=== PATIENT | male | born 1965 | race Caucasian/White ===

== ENCOUNTER 2019-01-22 05:45 | Emergency (ER) | payer MEDICAID ==
[~2019-01-22] VITALS: Ht 175.3 cm; Wt 166.9 kg
[~2019-01-22 05:45] MED LIST: AML5T PO; ASP81EC PO; ATOR1TAB PO; CLIN150C PO; GLIP5TAB12 PO
[2019-01-22 06:48] LABS: Urine Bacteria NONE SEEN /hpf (None Seen); Urine Blood Negative /uL (Negative); Urine Specific Gravity 1.004 (1.001-1.035); Urine WBC <1 /hpf (0 - 3)
[2019-01-22 07:11] LABS: Basophils # (auto) 0.1 uL; Basophils % (auto) 0.6 % (0.0-2.0); Eosinophils # (auto) 0.7 uL; Eosinophils % (auto) 4.6 % (0.0-7.0); Hematocrit 42.9 % (41.0-53.0); Hemoglobin 14.3 g/dL (13.5-17.5); Lymphocytes # (auto) 2.7 uL; Lymphocytes % (auto) 18.9 % (10.0-50.0); Mean Corpuscular Hemoglobin 30.3 pg (28.0-32.0); Mean Corpuscular Hgb Conc. 33.4 g/dL (32.0-36.0); Mean Corpuscular Volume 90.6 fL (80.0-100.0); Monocytes # (auto) 0.9 uL; Monocytes % (auto) 6.2 % (0.0-12.0); Neutrophils % (auto) 69.7 % (37.0-80.0); Platelet Count (auto) 301 10^3/uL (140-450); Red Blood Cells 4.73 10^6/uL (4.5-5.90); Red Cell Distribution Width 14.1 % (11.8-14.3); White Blood Cell 14.3 10^3/uL (4.4-10.8)
[2019-01-22 07:25] LABS: Alanine Aminotransferase 33 U/L (16-61); Albumin 3.4 g/dL (3.4-5.0); Amylase 39 U/L (25-115); Anion Gap 8 (5-15); Aspartate Aminotransferase 15 U/L (15-37); BUN/Creatinine Ratio 15.5; Blood Urea Nitrogen 18 mg/dL (7-18); Calcium 9.1 mg/dL (8.5-10.1); Carbon Dioxide 26 mmol/L (21-32); Chloride 100 mmol/L (98-107); GFR African American 84 mL/min; GFR Non-African American 70 mL/min; Glucose 246 mg/dL (74-106); Lipase 69 U/L (73-393); Potassium 4.2 mmol/L (3.5-5.1); Sodium 134 mmol/L (136-145)
[2019-01-22 07:31] LABS: Alkaline Phosphatase 98 U/L (45-117); Bilirubin, Total 0.4 mg/dL (0.2-1.0); Total Protein 7.6 g/dL (6.4-8.2)
[2019-01-22] MEDS ORDERED: SODIUM CHLORIDE 0.9% 1,000 ML IV ONE (08:04)
[2019-01-22] MEDS ORDERED: PROMETHAZINE HCL 25 MG/ML 1ML IV PRN (08:15)
[2019-01-22] MEDS ORDERED: HYDROmorphone HCL 2 MG/ML VL IV ONE (08:15)
[2019-01-22] MEDS ORDERED: LABETALOL HCL 5 MG/ML ML 20ML VIAL IV ONE (08:45)
[2019-01-22 14:00] VITALS: BP 118/86
== END 2019-01-22 14:23 | disposition home or self-care (01) ==
LOC: ER 05:45
DX: R10.11 Right upper quadrant pain (principal); R10.31 Right lower quadrant pain; M54.9 Dorsalgia, unspecified; E11.65 Type 2 diabetes mellitus with hyperglycemia; N28.89 Other specified disorders of kidney and ureter; E66.01 Morbid (severe) obesity due to excess calories; I10 Essential (primary) hypertension; E78.5 Hyperlipidemia, unspecified; I25.2 Old myocardial infarction; F12.90 Cannabis use, unspecified, uncomplicated; Z79.84 Long term (current) use of oral hypoglycemic drugs; Z79.82 Long term (current) use of aspirin; Z79.899 Other long term (current) drug therapy; Z68.43 Body mass index [BMI] 50.0-59.9, adult
CPT/HCPCS: 36415; 74176; 80053; 81001; 82150; 82962; 83690; 83735; 84443; 84484; 85025; 93005; 96361; 96374; 96375; 99284; J1170; J2550; J7030

== ENCOUNTER → 2019-05-29 | Outpatient (CLI) | payer MEDICAID | END | disposition home or self-care (01) | LOC: XYW 10:57 | PROVIDERS: ATTEND Internal Medicine | DX: Z01.810 Encounter for preprocedural cardiovascular examination (principal); I51.7 Cardiomegaly | CPT/HCPCS: 93306 ==

== ENCOUNTER → 2019-05-30 | Outpatient (CLI) | payer MEDICAID ==
[~2019-05-30] VITALS: Ht 175.3 cm; Wt 165.6 kg
[~2019-05-30] MED LIST changes: +ADENOSINE IV ONE; +GIVE UN DILUTED IV ONE
== END | disposition home or self-care (01) ==
LOC: XY 07:09
PROVIDERS: ATTEND Internal Medicine
DX: Z01.810 Encounter for preprocedural cardiovascular examination (principal); I10 Essential (primary) hypertension; E11.9 Type 2 diabetes mellitus without complications
CPT/HCPCS: 78452; 93017; A9500; J0153

== ENCOUNTER 2019-06-30 05:17 | Emergency (ER) | payer MEDICAID ==
[~2019-06-30] VITALS: Ht 175.3 cm; Wt 166.9 kg
[~2019-06-30 05:17] MED LIST changes: -ADENOSINE IV ONE; -GIVE UN DILUTED IV ONE
[2019-06-30 06:13] VITALS: BP 124/79
[2019-06-30 06:39] LABS: Urine WBC None Seen /hpf (0 - 3)
[2019-06-30 06:54] LABS: Urine Bacteria NONE SEEN /hpf (None Seen); Urine Blood Negative /uL (Negative); Urine Specific Gravity 1.007 (1.001-1.035)
[2019-06-30 07:08] LABS: Basophils # (auto) 0.1 uL; Eosinophils # (auto) 0.3 uL; Eosinophils % (auto) 2.4 % (0.0-7.0); Hematocrit 41.7 % (41.0-53.0); Hemoglobin 13.9 g/dL (13.5-17.5); Lymphocytes # (auto) 2.3 uL; Lymphocytes % (auto) 18.7 % (10.0-50.0); Mean Corpuscular Hgb Conc. 33.2 g/dL (32.0-36.0); Mean Corpuscular Volume 90.2 fL (80.0-100.0); Monocytes # (auto) 0.8 uL; Monocytes % (auto) 6.5 % (0.0-12.0); Neutrophils # (auto) 8.8 uL; Neutrophils % (auto) 71.4 % (37.0-80.0); Platelet Count (auto) 292 10^3/uL (140-450); Red Blood Cells 4.63 10^6/uL (4.5-5.90); Red Cell Distribution Width 14.8 % (11.8-14.3); White Blood Cell 12.3 10^3/uL (4.4-10.8)
[2019-06-30 07:29] LABS: INR 0.93 (0.9-1.15); Partial Thromboplastin Time 26.8 sec (23.64-32.05)
[2019-06-30 07:36] LABS: Blood Urea Nitrogen 17 mg/dL (7-18); Calcium 8.7 mg/dL (8.5-10.1); Chloride 104 mmol/L (98-107); Potassium 4.5 mmol/L (3.5-5.1); Sodium 136 mmol/L (136-145)
[2019-06-30 07:45] LABS: Alanine Aminotransferase 35 U/L (16-61); Albumin 3.2 g/dL (3.4-5.0); Alkaline Phosphatase 95 U/L (45-117); Amylase 35 U/L (25-115); Anion Gap 5 (5-15); Aspartate Aminotransferase 16 U/L (15-37); Bilirubin, Total 0.2 mg/dL (0.2-1.0); Carbon Dioxide 27 mmol/L (21-32); GFR African American 80 mL/min; GFR Non-African American 66 mL/min; Glucose 188 mg/dL (74-106); Lipase 69 U/L (73-393); Magnesium 1.9 mg/dL (1.6-2.6); Total Protein 7.5 g/dL (6.4-8.2)
[2019-06-30] MEDS ORDERED: HYDROcodone-ACET 10/325MG TAB PO ONE (09:15)
== END 2019-06-30 12:28 | disposition home or self-care (01) ==
LOC: ER 05:17
DX: N28.89 Other specified disorders of kidney and ureter (principal); E86.0 Dehydration; E11.22 Type 2 diabetes mellitus with diabetic chronic kidney disease; I12.9 Hypertensive chronic kidney disease with stage 1 through stage 4 chronic kidney disease, or unspecified chronic kidney disease; N18.9 Chronic kidney disease, unspecified; E78.5 Hyperlipidemia, unspecified; I25.2 Old myocardial infarction; Z87.891 Personal history of nicotine dependence
CPT/HCPCS: 36415; 71046; 74176; 80053; 81001; 82150; 83690; 83735; 84484; 85025; 85610; 85730; 93005

== ENCOUNTER 2019-07-19 07:37 | Emergency (ER) | payer MEDICAID ==
[~2019-07-19] VITALS: Ht 175.3 cm; Wt 163.3 kg
[2019-07-19 08:52] LABS: Basophils # (auto) 0.2 10 ^3/uL (0-0.2); Basophils % (auto) 1.3 % (0.0-2.0); Eosinophils # (auto) 0.4 10 ^3/uL (0-0.8); Eosinophils % (auto) 2.7 % (0.0-7.0); Hematocrit 37.1 % (41.0-53.0); Hemoglobin 12.4 g/dL (13.5-17.5); Lymphocytes # (auto) 1.9 10 ^3/uL (0.4-5.4); Mean Corpuscular Hemoglobin 30.2 pg (28.0-32.0); Mean Corpuscular Hgb Conc. 33.5 g/dL (32.0-36.0); Mean Corpuscular Volume 90.1 fL (80.0-100.0); Monocytes # (auto) 1.1 10 ^3/uL (0-1.3); Monocytes % (auto) 7.6 % (0.0-12.0); Neutrophils # (auto) 10.8 10 ^3/uL (1.6-8.6); Neutrophils % (auto) 75.4 % (37.0-80.0); Nucleated Red Blood Cells % 0.1 %; Platelet Count (auto) 314 10^3/uL (140-450); Red Blood Cells 4.12 10^6/uL (4.5-5.90); Red Cell Distribution Width 14.3 % (11.8-14.3); White Blood Cell 14.3 10^3/uL (4.4-10.8)
[2019-07-19 09:06] LABS: Albumin 2.8 g/dL (3.4-5.0); Potassium 4.6 mmol/L (3.5-5.1)
[2019-07-19 09:08] LABS: BUN/Creatinine Ratio 13.3
[2019-07-19 09:10] LABS: Bilirubin, Total 0.5 mg/dL (0.2-1.0); Total Protein 7.5 g/dL (6.4-8.2)
[2019-07-19 10:13] VITALS: BP 134/90
[2019-07-19 10:26] LABS: Urine Bacteria FEW /hpf (None Seen); Urine Blood TRACE /uL (Negative); Urine Hyaline Cast FEW /lpf (0 - 2); Urine Specific Gravity 1.012 (1.001-1.035); Urine WBC 2 /hpf (0 - 3)
== END 2019-07-19 10:19 | disposition home or self-care (01) ==
LOC: ER 07:37
DX: R10.84 Generalized abdominal pain (principal); D72.829 Elevated white blood cell count, unspecified; M62.838 Other muscle spasm; I11.0 Hypertensive heart disease with heart failure; I50.9 Heart failure, unspecified; E11.9 Type 2 diabetes mellitus without complications; E78.5 Hyperlipidemia, unspecified; I25.2 Old myocardial infarction; F12.10 Cannabis abuse, uncomplicated; Z87.891 Personal history of nicotine dependence
CPT/HCPCS: 36415; 74018; 80053; 81001; 82150; 83690; 85025; 93005

== ENCOUNTER 2020-02-04 20:11 | Emergency (ER) | payer MEDICAID ==
[~2020-02-04] VITALS: Ht 175.3 cm; Wt 164.2 kg
[~2020-02-04 20:11] MED LIST changes: -ASP81EC PO; +ASPI-394 PO
[2020-02-04 21:38] LABS: Urine Bacteria NONE SEEN /hpf (None Seen); Urine Blood TRACE /uL (Negative); Urine Hyaline Cast FEW /lpf (0 - 2); Urine Specific Gravity 1.013 (1.001-1.035); Urine WBC <1 /hpf (0 - 3)
[2020-02-04 21:44] LABS: Basophils # (auto) 0.1 10 ^3/uL (0-0.2); Basophils % (auto) 0.9 % (0.0-2.0); Eosinophils # (auto) 0.3 10 ^3/uL (0-0.8); Eosinophils % (auto) 2.2 % (0.0-7.0); Hematocrit 38.9 % (41.0-53.0); Hemoglobin 13.1 g/dL (13.5-17.5); Lymphocytes # (auto) 2.9 10 ^3/uL (0.4-5.4); Lymphocytes % (auto) 20.2 % (10.0-50.0); Mean Corpuscular Hemoglobin 29.9 pg (28.0-32.0); Mean Corpuscular Hgb Conc. 33.5 g/dL (32.0-36.0); Mean Corpuscular Volume 89.3 fL (80.0-100.0); Monocytes % (auto) 7.4 % (0.0-12.0); Neutrophils # (auto) 9.8 10 ^3/uL (1.6-8.6); Neutrophils % (auto) 69.3 % (37.0-80.0); Nucleated Red Blood Cells % 0.1 %; Platelet Count (auto) 330 10^3/uL (140-450); Red Blood Cells 4.36 10^6/uL (4.5-5.90); Red Cell Distribution Width 14.3 % (11.8-14.3); White Blood Cell 14.2 10^3/uL (4.4-10.8)
[2020-02-04 21:53] LABS: Alanine Aminotransferase 32 U/L (16-61); Albumin 3.4 g/dL (3.4-5.0); Anion Gap 8 (5-15); Aspartate Aminotransferase 15 U/L (15-37); BUN/Creatinine Ratio 15.2; Blood Urea Nitrogen 35 mg/dL (7-18); Carbon Dioxide 25 mmol/L (21-32); Chloride 104 mmol/L (98-107); GFR African American 38 mL/min; GFR Non-African American 31 mL/min; Glucose 128 mg/dL (74-106); Potassium 4.3 mmol/L (3.5-5.1); Sodium 137 mmol/L (136-145)
[2020-02-04 21:58] LABS: Alkaline Phosphatase 102 U/L (45-117); Bilirubin, Total 0.3 mg/dL (0.2-1.0); Total Protein 7.5 g/dL (6.4-8.2)
[2020-02-04] MEDS ORDERED: ONDANSETRON HCL 4 MG/2 ML VIAL IV ONE (23:45)
[2020-02-04] MEDS ORDERED: SODIUM CHLORIDE 0.9% 1,000 ML IV ONE (23:45)
[2020-02-04] MEDS ORDERED: MORPHINE SULFATE 4 MG/ML SYR/VIAL IV ONE (23:45)
[2020-02-05 00:50] LABS: Amylase 48 U/L (25-115); Lipase 80 U/L (73-393)
[2020-02-05 03:58] VITALS: BP 127/69
== END 2020-02-05 04:13 | disposition home or self-care (01) ==
LOC: ER 20:14
DX: N17.9 Acute kidney failure, unspecified (principal); D72.829 Elevated white blood cell count, unspecified; E11.22 Type 2 diabetes mellitus with diabetic chronic kidney disease; I12.9 Hypertensive chronic kidney disease with stage 1 through stage 4 chronic kidney disease, or unspecified chronic kidney disease; N18.9 Chronic kidney disease, unspecified; E78.5 Hyperlipidemia, unspecified
CPT/HCPCS: 36415; 71045; 74176; 80053; 81001; 82150; 83690; 84484; 85025; 93005; 96361; 96374; 96375; 99285; J2270; J2405; J7030

== ENCOUNTER 2020-02-06 11:22 | Emergency (ER) | payer MEDICAID ==
[~2020-02-06] VITALS: Ht 175.3 cm; Wt 164.2 kg
[2020-02-06 12:32] LABS: Urine WBC None Seen /hpf (0 - 3)
[2020-02-06 12:45] LABS: Urine Bacteria FEW /hpf (None Seen); Urine Blood 1+ /uL (Negative); Urine Specific Gravity 1.012 (1.001-1.035)
[2020-02-06 13:12] LABS: Basophils # (auto) 0.2 10 ^3/uL (0-0.2); Basophils % (auto) 1.2 % (0.0-2.0); Eosinophils # (auto) 0.2 10 ^3/uL (0-0.8); Eosinophils % (auto) 1.5 % (0.0-7.0); Hematocrit 38.8 % (41.0-53.0); Hemoglobin 12.9 g/dL (13.5-17.5); Lymphocytes # (auto) 2.1 10 ^3/uL (0.4-5.4); Lymphocytes % (auto) 14.3 % (10.0-50.0); Mean Corpuscular Hemoglobin 29.9 pg (28.0-32.0); Mean Corpuscular Hgb Conc. 33.3 g/dL (32.0-36.0); Mean Corpuscular Volume 89.7 fL (80.0-100.0); Monocytes # (auto) 0.9 10 ^3/uL (0-1.3); Monocytes % (auto) 6.1 % (0.0-12.0); Neutrophils # (auto) 11.1 10 ^3/uL (1.6-8.6); Neutrophils % (auto) 76.9 % (37.0-80.0); Platelet Count (auto) 317 10^3/uL (140-450); Red Blood Cells 4.32 10^6/uL (4.5-5.90); Red Cell Distribution Width 13.8 % (11.8-14.3); White Blood Cell 14.4 10^3/uL (4.4-10.8)
[2020-02-06 13:32] LABS: Albumin 3.6 g/dL (3.4-5.0); Calcium 9.1 mg/dL (8.5-10.1)
[2020-02-06 13:40] LABS: BUN/Creatinine Ratio 13.2; Bilirubin, Total 0.4 mg/dL (0.2-1.0); Total Protein 7.5 g/dL (6.4-8.2)
[2020-02-06 14:08] VITALS: BP 158/58
== END 2020-02-06 14:21 | disposition home or self-care (01) ==
LOC: ER 11:22
DX: R10.11 Right upper quadrant pain (principal); E11.22 Type 2 diabetes mellitus with diabetic chronic kidney disease; I12.9 Hypertensive chronic kidney disease with stage 1 through stage 4 chronic kidney disease, or unspecified chronic kidney disease; N18.9 Chronic kidney disease, unspecified; E78.5 Hyperlipidemia, unspecified; Z87.891 Personal history of nicotine dependence
CPT/HCPCS: 36415; 74176; 80053; 81001; 85025; 93005

== ENCOUNTER 2020-05-15 17:21 | Inpatient (IN) | payer MEDICAID ==
[~2020-05-15] VITALS: Ht 175.3 cm; Wt 166.1 kg
[~2020-05-15 17:21] MED LIST changes: +ASPI-543 PO; +BACL10TA PO; +CAR125T PO; +INS7030I SC
[2020-05-15] MEDS ORDERED: ACETAMINOPHEN 325 MG TAB PO ONE (18:14)
[2020-05-15] MEDS ORDERED: ONDANSETRON HCL 4 MG/2 ML VIAL ONE (18:14)
[2020-05-15] MEDS ORDERED: DexAMETHasone SOD PHOS 10MG/1ML VIAL INJ IV ONE (19:15)
[2020-05-15] MEDS ORDERED: AZITHROMYCIN 500MG/ 250ML 250 ML IV ONE (19:15)
[2020-05-15 22:15] LABS: Basophils # (auto) 0 10 ^3/uL (0-0.2); Basophils % (auto) 0.3 % (0.0-2.0); Eosinophils # (auto) 0 10 ^3/uL (0-0.8); Hematocrit 34.8 % (41.0-53.0); Hemoglobin 11.9 g/dL (13.5-17.5); Lymphocytes # (auto) 0.7 10 ^3/uL (0.4-5.4); Lymphocytes % (auto) 7.5 % (10.0-50.0); Mean Corpuscular Hgb Conc. 34.2 g/dL (32.0-36.0); Mean Corpuscular Volume 87.8 fL (80.0-100.0); Monocytes # (auto) 0.6 10 ^3/uL (0-1.3); Monocytes % (auto) 5.9 % (0.0-12.0); Neutrophils # (auto) 8.1 10 ^3/uL (1.6-8.6); Neutrophils % (auto) 86.3 % (37.0-80.0); Platelet Count (auto) 237 10^3/uL (140-450); Red Blood Cells 3.97 10^6/uL (4.5-5.90); Red Cell Distribution Width 13.4 % (11.8-14.3); White Blood Cell 9.4 10^3/uL (4.4-10.8)
[2020-05-15 22:23] LABS: Albumin 2.8 g/dL (3.4-5.0); Calcium 7.9 mg/dL (8.5-10.1); Magnesium 1.7 mg/dL (1.6-2.6); Potassium 5.1 mmol/L (3.5-5.1)
[2020-05-15 22:31] LABS: BUN/Creatinine Ratio 16.4; Bilirubin, Total 0.3 mg/dL (0.2-1.0); Total Protein 7.1 g/dL (6.4-8.2)
[2020-05-16] MEDS ORDERED: DEXTROSE (50%) 50ML SYRG IV PRN (01:30)
[2020-05-16] MEDS ORDERED: ACETAMINOPHEN 500 MG TAB PO PRN (01:30)
[2020-05-16] MEDS ORDERED: DOCUSATE SOD 100 MG CAP PO PRN (01:30)
[2020-05-16] MEDS ORDERED: NITROGLYCERIN 0.4 MG SL TAB SL PRN (01:30)
[2020-05-16] MEDS ORDERED: HYDROcodone-ACET 5/325MG TAB PO PRN (01:30)
[2020-05-16] MEDS ORDERED: MORPHINE SULF INJ 2 MG/ML SYRINGE 1ML IV PRN (01:30)
[2020-05-16] MEDS ORDERED: SODIUM CHL 3% 500 ML IV ONE (01:30)
[2020-05-16 03:26] LABS: Partial Thromboplastin Time 26.8 sec (23.0-31.2)
[2020-05-16] MEDS: SODIUM CHLOR 0.9% PF (SALINE LOCK) 10ML VIAL/SYR IV SCH ×3 (06:57→21:56)
[2020-05-16] MEDS ORDERED: INSULIN LANTUS (GLARGINE) 1 /0.01ml (100units/ml) SC SCH (07:00)
[2020-05-16] MEDS: ACCU-CHEK COMFORT CURVE STRIP VI SCH ×4 (07:07→22:13)
[2020-05-16] MEDS: InsuLIN REG 1unit/0.01ml Soln (100units/ml) SC SCH ×5 (07:09→22:13)
[2020-05-16] MEDS: CHOLECALCIFEROL (VITD3) 2,000 UNIT CAP PO SCH (09:00)
[2020-05-16] MEDS: ZINC SULFATE 220mg CAP or TAB PO SCH (09:00)
[2020-05-16] MEDS: ASCORBIC ACID 1,000 MG TAB PO SCH (09:00)
[2020-05-16] MEDS: MULTIPLE VITAMIN TAB PO SCH (09:00)
[2020-05-16] MEDS: FAMOTIDINE (10MG/ML) 2ML VL IV SCH (09:06)
[2020-05-16] MEDS: HEPARIN SODIUM (PORCINE) 5000 UNITS/ML 1ML VIAL SC SCH ×2 (09:06→22:12)
[2020-05-16] MEDS: DexAMETHasone SOD PHOS 10MG/1ML VIAL INJ IV SCH (09:06)
[2020-05-16] MEDS: BUDESONIDE (INHALATION) 180 MCG IH IN SCH ×4 (09:07→18:58)
[2020-05-16] MEDS: DOXYCYCLINE 100MG/250ML 250 ML IV SCH ×2 (09:07→21:57)
[2020-05-16] MEDS ORDERED: ENOXAPARIN SOD 40 MG/0.4 ML SYRINGE SC SCH (10:00)
[2020-05-16] MEDS: ALBUTEROL SULF HFA 90MCG INH 200DOSE IN PRN ×2 (11:08→19:38)
[2020-05-16 12:00] LABS: Basophils # (auto) 0 10 ^3/uL (0-0.2); Basophils % (auto) 0.3 % (0.0-2.0); Eosinophils # (auto) 0 10 ^3/uL (0-0.8); Hematocrit 34.8 % (41.0-53.0); Lymphocytes # (auto) 0.6 10 ^3/uL (0.4-5.4); Lymphocytes % (auto) 10.2 % (10.0-50.0); Mean Corpuscular Hemoglobin 30.3 pg (28.0-32.0); Mean Corpuscular Hgb Conc. 34.4 g/dL (32.0-36.0); Mean Corpuscular Volume 87.9 fL (80.0-100.0); Monocytes # (auto) 0.4 10 ^3/uL (0-1.3); Monocytes % (auto) 6.5 % (0.0-12.0); Neutrophils # (auto) 4.6 10 ^3/uL (1.6-8.6); Platelet Count (auto) 252 10^3/uL (140-450); Red Blood Cells 3.96 10^6/uL (4.5-5.90); Red Cell Distribution Width 13.2 % (11.8-14.3); White Blood Cell 5.5 10^3/uL (4.4-10.8)
[2020-05-16 12:10] LABS: Total Protein 7.2 g/dL (6.4-8.2)
[2020-05-16 16:50] LABS: BUN/Creatinine Ratio 17.6
[2020-05-16 16:51] LABS: Bilirubin, Total 0.5 mg/dL (0.2-1.0); Calcium 8.4 mg/dL (8.5-10.1)
[2020-05-16] MEDS: INSULIN 70/30 1unit/0.01ml Susp (100units/ml) SC SCH ×2 (18:43→22:12)
[2020-05-16] MEDS: glipiZIDE 5 MG TAB PO SCH (18:43)
[2020-05-17] VITALS: BP 141/72
[2020-05-17] MEDS: FAMOTIDINE (10MG/ML) 2ML VL IV SCH ×3 (00:43→21:51)
[2020-05-17 01:44] VITALS: BP 141/72
[2020-05-17] MEDS: SODIUM CHLOR 0.9% PF (SALINE LOCK) 10ML VIAL/SYR IV SCH ×3 (06:34→21:51)
[2020-05-17] MEDS: glipiZIDE 5 MG TAB PO SCH ×2 (06:35→17:29)
[2020-05-17] MEDS: InsuLIN REG 1unit/0.01ml Soln (100units/ml) SC SCH ×4 (06:35→21:57)
[2020-05-17] MEDS: ACCU-CHEK COMFORT CURVE STRIP VI SCH ×4 (06:35→21:52)
[2020-05-17] MEDS: INSULIN 70/30 1unit/0.01ml Susp (100units/ml) SC SCH ×3 (06:36→21:57)
[2020-05-17 07:59] LABS: Basophils # (auto) 0.1 10 ^3/uL (0-0.2); Basophils % (auto) 0.5 % (0.0-2.0); Eosinophils # (auto) 0 10 ^3/uL (0-0.8); Hematocrit 36.7 % (41.0-53.0); Hemoglobin 12.1 g/dL (13.5-17.5); Lymphocytes % (auto) 8.5 % (10.0-50.0); Mean Corpuscular Hemoglobin 29.1 pg (28.0-32.0); Mean Corpuscular Volume 88.1 fL (80.0-100.0); Monocytes % (auto) 8.6 % (0.0-12.0); Neutrophils # (auto) 9.6 10 ^3/uL (1.6-8.6); Neutrophils % (auto) 82.4 % (37.0-80.0); Platelet Count (auto) 309 10^3/uL (140-450); Red Blood Cells 4.17 10^6/uL (4.5-5.90); Red Cell Distribution Width 13.4 % (11.8-14.3); White Blood Cell 11.7 10^3/uL (4.4-10.8)
[2020-05-17 08:00] VITALS: BP 154/74
[2020-05-17 08:38] LABS: Albumin 2.9 g/dL (3.4-5.0); Calcium 8.7 mg/dL (8.5-10.1); Potassium 5.1 mmol/L (3.5-5.1)
[2020-05-17 08:41] LABS: BUN/Creatinine Ratio 19.2; Bilirubin, Total 0.3 mg/dL (0.2-1.0); Total Protein 7.3 g/dL (6.4-8.2)
[2020-05-17] MEDS: DexAMETHasone SOD PHOS 10MG/1ML VIAL INJ IV SCH (09:28)
[2020-05-17] MEDS: CHOLECALCIFEROL (VITD3) 2,000 UNIT CAP PO SCH (09:29)
[2020-05-17] MEDS: ZINC SULFATE 220mg CAP or TAB PO SCH (09:29)
[2020-05-17] MEDS: ASCORBIC ACID 1,000 MG TAB PO SCH (09:29)
[2020-05-17] MEDS: MULTIPLE VITAMIN TAB PO SCH (09:29)
[2020-05-17] MEDS: DOXYCYCLINE 100MG/250ML 250 ML IV SCH ×2 (09:29→21:51)
[2020-05-17] MEDS: ONDANSETRON HCL 4 MG/2 ML VIAL IV PRN (09:47)
[2020-05-17] MEDS: HEPARIN SODIUM (PORCINE) 5000 UNITS/ML 1ML VIAL SC SCH ×2 (09:48→21:53)
[2020-05-17] MEDS: BUDESONIDE (INHALATION) 180 MCG IH IN SCH ×2 (10:00→21:25)
[2020-05-17 16:00] VITALS: BP 154/74
[2020-05-17 18:20] VITALS: BP 159/86
[2020-05-17] MEDS: ALBUTEROL SULF HFA 90MCG INH 200DOSE IN PRN (21:25)
[2020-05-17 23:40] VITALS: BP 134/60
[2020-05-18] MEDS: SODIUM CHLOR 0.9% PF (SALINE LOCK) 10ML VIAL/SYR IV SCH ×2 (06:03→14:00)
[2020-05-18] MEDS: INSULIN 70/30 1unit/0.01ml Susp (100units/ml) SC SCH ×2 (06:43→14:00)
[2020-05-18] MEDS: InsuLIN REG 1unit/0.01ml Soln (100units/ml) SC SCH ×3 (06:44→18:07)
[2020-05-18] MEDS: glipiZIDE 5 MG TAB PO SCH ×2 (06:44→18:06)
[2020-05-18] MEDS: ACCU-CHEK COMFORT CURVE STRIP VI SCH ×3 (06:44→18:06)
[2020-05-18] MEDS: ONDANSETRON HCL 4 MG/2 ML VIAL IV PRN ×2 (06:53→10:14)
[2020-05-18 07:57] LABS: Basophils # (auto) 0 10 ^3/uL (0-0.2); Basophils % (auto) 0.2 % (0.0-2.0); Eosinophils # (auto) 0 10 ^3/uL (0-0.8); Hematocrit 35.1 % (41.0-53.0); Hemoglobin 11.7 g/dL (13.5-17.5); Lymphocytes # (auto) 0.9 10 ^3/uL (0.4-5.4); Lymphocytes % (auto) 8.4 % (10.0-50.0); Mean Corpuscular Hemoglobin 29.4 pg (28.0-32.0); Mean Corpuscular Hgb Conc. 33.5 g/dL (32.0-36.0); Mean Corpuscular Volume 87.8 fL (80.0-100.0); Monocytes # (auto) 0.8 10 ^3/uL (0-1.3); Monocytes % (auto) 7.6 % (0.0-12.0); Neutrophils # (auto) 9.2 10 ^3/uL (1.6-8.6); Neutrophils % (auto) 83.8 % (37.0-80.0); Platelet Count (auto) 320 10^3/uL (140-450); Red Cell Distribution Width 13.3 % (11.8-14.3)
[2020-05-18 08:20] LABS: Potassium 4.7 mmol/L (3.5-5.1)
[2020-05-18 08:44] LABS: Albumin 2.6 g/dL (3.4-5.0); BUN/Creatinine Ratio 19.5; Bilirubin, Total 0.3 mg/dL (0.2-1.0); CRP High Sensitivity 2.57 mg/dL (< 0.3); Calcium 8.3 mg/dL (8.5-10.1)
[2020-05-18] MEDS: BUDESONIDE (INHALATION) 180 MCG IH IN SCH ×2 (09:17→19:59)
[2020-05-18] MEDS: ALBUTEROL SULF HFA 90MCG INH 200DOSE IN PRN ×2 (09:17→19:59)
[2020-05-18] MEDS: FAMOTIDINE (10MG/ML) 2ML VL IV SCH (10:00)
[2020-05-18] MEDS: DOXYCYCLINE 100MG/250ML 250 ML IV SCH (10:13)
[2020-05-18] MEDS: ASCORBIC ACID 1,000 MG TAB PO SCH (10:13)
[2020-05-18] MEDS: ZINC SULFATE 220mg CAP or TAB PO SCH (10:13)
[2020-05-18] MEDS: MULTIPLE VITAMIN TAB PO SCH (10:13)
[2020-05-18] MEDS: CHOLECALCIFEROL (VITD3) 2,000 UNIT CAP PO SCH (10:13)
[2020-05-18] MEDS: DexAMETHasone SOD PHOS 10MG/1ML VIAL INJ IV SCH (10:14)
[2020-05-18] MEDS: HEPARIN SODIUM (PORCINE) 5000 UNITS/ML 1ML VIAL SC SCH (10:22)
[2020-05-18 16:00] VITALS: BP 144/76
== END 2020-05-18 20:50 | disposition left against medical advice (07) | DRG 137 ==
LOC: ER 17:22 → OVERFLOW 05-16 01:39 → TELE-WESTW 05-16 22:51
PROVIDERS: ADMIT Nurse Practitioner Family; ATTEND Internal Medicine
DX: U07.1 COVID-19 (principal); J12.82 Pneumonia due to coronavirus disease 2019; E11.65 Type 2 diabetes mellitus with hyperglycemia; J96.01 Acute respiratory failure with hypoxia; E66.01 Morbid (severe) obesity due to excess calories; Z68.43 Body mass index [BMI] 50.0-59.9, adult; E11.22 Type 2 diabetes mellitus with diabetic chronic kidney disease; E78.5 Hyperlipidemia, unspecified; F12.90 Cannabis use, unspecified, uncomplicated; F32.9 Major depressive disorder, single episode, unspecified; N18.30 Chronic kidney disease, stage 3 unspecified; I12.9 Hypertensive chronic kidney disease with stage 1 through stage 4 chronic kidney disease, or unspecified chronic kidney disease; Z53.29 Procedure and treatment not carried out because of patient's decision for other reasons; N17.9 Acute kidney failure, unspecified; Z82.3 Family history of stroke; Z82.49 Family history of ischemic heart disease and other diseases of the circulatory system; Z83.3 Family history of diabetes mellitus; Z85.528 Personal history of other malignant neoplasm of kidney; Z87.891 Personal history of nicotine dependence; Z90.5 Acquired absence of kidney
CPT/HCPCS: 36415; 71045; 80053; 82962; 83036; 83605; 83615; 83735; 84484; 85025; 85379; 85610; 85730; 86141; 87040; 87426; 93005; 93970; 94640; 96365; 96366; 96372; 96375; G0378; J1100; J1815; J2405; J3490

== ENCOUNTER 2020-06-13 09:07 | Inpatient (IN) | payer MEDICAID ==
[~2020-06-13] VITALS: Ht 175.3 cm; Wt 173.3 kg
[~2020-06-13 09:07] MED LIST changes: +ATOR-47 PO; -ATOR1TAB PO
[2020-06-13 10:07] LABS: Hematocrit 33.3 % (41.0-53.0); Hemoglobin 11.4 g/dL (13.5-17.5); Mean Corpuscular Hemoglobin 30.9 pg (28.0-32.0); Mean Corpuscular Hgb Conc. 34.3 g/dL (32.0-36.0); Mean Corpuscular Volume 90.1 fL (80.0-100.0); Platelet Count (auto) 249 10^3/uL (140-450); Red Cell Distribution Width 15.3 % (11.8-14.3); White Blood Cell 12.5 10^3/uL (4.4-10.8)
[2020-06-13 10:18] LABS: Basophils % (manual) 0 (0.0-2.0); Blast Cells 0; Metamyelocytes % 0; Myelocytes % 0; Promyelocytes % 0; Reactive Lymphocytes 0
[2020-06-13 10:21] LABS: Albumin 2.9 g/dL (3.4-5.0); Anion Gap 5 (5-15); Blood Urea Nitrogen 30 mg/dL (7-18); Calcium 8.5 mg/dL (8.5-10.1); Carbon Dioxide 28 mmol/L (21-32); Chloride 100 mmol/L (98-107); Glucose 394 mg/dL (74-106); Magnesium 2.1 mg/dL (1.6-2.6); Potassium 5.1 mmol/L (3.5-5.1); Sodium 133 mmol/L (136-145)
[2020-06-13 10:26] LABS: Alanine Aminotransferase 43 U/L (16-61); Alkaline Phosphatase 122 U/L (45-117); Aspartate Aminotransferase 27 U/L (15-37); BUN/Creatinine Ratio 13.9; Bilirubin, Total 0.3 mg/dL (0.2-1.0); GFR African American 41 mL/min; GFR Non-African American 34 mL/min; Total Protein 6.8 g/dL (6.4-8.2)
[2020-06-13 11:20] LABS: Band Neutrophils % (manual) 2; Eosinophils % (manual) 5 (0-7); Lymphocytes % (manual) 22 (10.0-50.0); Monocytes % (manual) 13 (0-12)
[2020-06-13] MEDS ORDERED: AZITHROMYCIN 500MG/ 250ML 250 ML IV ONE (13:00)
[2020-06-13] MEDS ORDERED: MORPHINE SULF INJ 2 MG/ML SYRINGE 1ML IV PRN (15:30)
[2020-06-13] MEDS ORDERED: ONDANSETRON HCL 4 MG/2 ML VIAL IV PRN (15:30)
[2020-06-13] MEDS ORDERED: NITROGLYCERIN 0.4 MG SL TAB SL PRN (15:30)
[2020-06-13] MEDS ORDERED: HYDROcodone-ACET 10/325MG TAB PO PRN (15:45)
[2020-06-13] MEDS ORDERED: SENNA 8.6 MG TAB PO PRN ×2 (15:45→16:45)
[2020-06-13] MEDS ORDERED: LIDOCAINE 5% TOPICAL PATCH TOP PRN (16:45)
[2020-06-13] MEDS ORDERED: INSULIN 70/30 1unit/0.01ml Susp (100units/ml) SC SCH ×2 (17:00→22:00)
[2020-06-13] MEDS ORDERED: InsuLIN REG 1unit/0.01ml Soln (100units/ml) SC SCH (17:00)
[2020-06-13] MEDS ORDERED: INSULIN LISPRO (HUMAN) 100 UNITS/ML ML SC SCH ×2 (18:00)
[2020-06-13 18:48] VITALS: BP 154/82
[2020-06-13] MEDS ORDERED: glipiZIDE 5 MG TAB PO SCH (22:00)
[2020-06-13] MEDS ORDERED: hydrALAZINE HCL 10 MG TAB PO SCH (22:00)
[2020-06-13] MEDS ORDERED: BACLOFEN 10 MG TAB PO SCH (22:00)
[2020-06-14] MEDS ORDERED: CARVEDILOL 12.5 MG TAB PO SCH (10:00)
[2020-06-14] MEDS ORDERED: ASPirin 81 mg TAB PO SCH (10:00)
[2020-06-14] MEDS ORDERED: ATORVASTATIN 20 MG TAB PO ONE (10:00)
== END 2020-06-13 20:00 | disposition left against medical advice (07) | DRG 133 ==
LOC: ER 09:07 → TELE 15:25
PROVIDERS: ADMIT Internal Medicine; ATTEND Internal Medicine
DX: J96.01 Acute respiratory failure with hypoxia (principal); J18.9 Pneumonia, unspecified organism; I13.0 Hypertensive heart and chronic kidney disease with heart failure and stage 1 through stage 4 chronic kidney disease, or unspecified chronic kidney disease; N18.32 Chronic kidney disease, stage 3b; I50.9 Heart failure, unspecified; E66.9 Obesity, unspecified; J44.0 Chronic obstructive pulmonary disease with (acute) lower respiratory infection; Z20.822 Contact with and (suspected) exposure to COVID-19; Z68.43 Body mass index [BMI] 50.0-59.9, adult; Z53.29 Procedure and treatment not carried out because of patient's decision for other reasons; E87.1 Hypo-osmolality and hyponatremia; E11.22 Type 2 diabetes mellitus with diabetic chronic kidney disease; Z87.891 Personal history of nicotine dependence; Z82.49 Family history of ischemic heart disease and other diseases of the circulatory system; Z83.3 Family history of diabetes mellitus; Z79.899 Other long term (current) drug therapy; E11.65 Type 2 diabetes mellitus with hyperglycemia; M79.89 Other specified soft tissue disorders
CPT/HCPCS: 36415; 71045; 80053; 83605; 83735; 83880; 84484; 85007; 85027; 87426; 96360; G0378